=== PATIENT | female | born 2000 | race Two or more races ===

== ENCOUNTER 2024-09-26 03:15 | Emergency (ER) | payer SELFPAY ==
[2024-09-26 03:19] VITALS: PULSE 104; RESP 18; O2SAT 98; BMI 24.4
--- NOTE | 2024-09-26 03:26 | EDNOTE_ITS ---
ED General RME/HPI General Chief complaint: Altered Mental Status Stated complaint: AMS Time Seen by Provider: 09/26/24 03:17 Arrival date/time: 09/26/24 03:15 RME / HPI RME / HPI narrative: See MDM Review of Systems Review of Systems Systems Reviewed: All systems reviewed, normal except as documented ED Exam Narrative Physical exam: Physical Exam GENERAL: NAD, GCS 5, protecting airway HEENT: Moist mucosa. Eyes open, symmetrical, & clear CARDIO: Heart RRR, no obvious murmurs PULM: No noted coughing/dyspnea CTA B/L, no R/W/R GI: Abdomen soft, nondistended, no pain on palpation. BSx4 SKIN/MSK/EXT: No wounds/rashes/edema/amputations, no pain on palpation. Pedal pulses present B/L Course Quality Measures none Orders Category Date Time Status EKG (ED ONLY) *Do not use* NOW Care 09/26/24 04:19 Completed Orthostatic Vitals NOW Care 09/26/24 04:22 Active Straight [In and Out Catheter] X1 Care 09/26/24 03:[address] head/brain wo con Stat Exams 09/26/24 03:39 Stop Req EKG (ED Only) Stat Exams 09/26/24 04:19 Ordered ABG [Arterial Blood Gas] Stat Lab 09/26/24 04:03 Completed Acetaminophen Stat Lab 09/26/24 04:15 Results Alcohol, Blood Medical Stat Lab 09/26/24 04:15 Results Alcohol, Urine Stat Lab 09/26/24 04:20 Completed Ammonia Stat Lab 09/26/24 04:15 Completed CBC [CBC] Stat Lab 09/26/24 04:15 Completed CMP [Comprehensive Metabolic Panel] Stat Lab 09/26/24 04:15 Results Creatine Kinase Stat Lab 09/26/24 04:15 Results Drug Screen,Urine Stat Lab 09/26/24 04:20 Completed HCG Qualitative,Urine Stat Lab 09/26/24 04:48 Ordered Lactic Acid [Lactate (Lactic Acid)] Stat Lab 09/26/24 04:15 Results Troponin I Stat Lab 09/26/24 04:15 Results Urinalysis Stat Lab 09/26/24 04:20 Completed Ringers Lactated 1000 ml [Lactated Ringers] 1,000 ml Med 09/26/24 04:47 Pending IV 999 mls/hr Vital Signs Vital signs: Vital Signs Temperature 98.6 F 09/26/24 03:32 Pulse Rate 75 09/26/24 03:32 Respiratory Rate 17 09/26/24 03:32 Blood Pressure 134/87 H 09/26/24 03:32 Pulse Oximetry (%) 99 09/26/24 03:32 Oxygen Delivery Method Room Air 09/26/24 03:32 Discharge Plan Problem List Clinical Impression: Alcoholic intoxication, Altered mental status Patient/Caregiver Discharge Instructions Additional Instructions: 1.Follow-up with your primary care physician within 1 week of discharge and ask for a referral to neurology in regards to your seizures and syncope, as well as cardiology for further workup of syncope To make sure there is no serious underlying heart condition, ask to help you get more tests for your heart that cannot be done here in the ER.? Such as Holter Monitor (cardiac monitoring at home from a day to even a month), heart stress test (on treadmill or with medication), echocardiogram (imaging of your heart structures), heart catherization (checking for blockages in your heart arteries), and a referral to see a Corporate Fitness Program Coordinator.? Ask for help with EEG (brain monitoring to assess for seizures), referral to see neurologist, and MRI imaging of the brain. 2. Please abstain from consuming high amounts of caffeine as this can induce cardiac arrhythmias 3. Please abstain from alcohol use as this is a trigger for your seizures in addition to all the other complications associated with alcohol use including cancer, liver failure 4. Should any symptoms recur or worsen patient is instructed to return to the ER. Print Language: Setswana MDM Narrative MDM hospital course: 24-year-old female with history of seizures (not on any medication) was brought to the ED due to becoming unresponsive. Per the aunt who was at bedside she states that the patient went out drinking smoking cigarettes went home around midnight and then around 2 in the morning she suddenly lost consciousness and became unresponsive. EMS was called and brought the patient in, per EMS patient has had episodes like this before in the past. EMS states that she had some synchronous twitching of her legs prior to arrival. The aunt states that the patient whenever she drinks she has seizure-like episodes. At the time of my evaluation she opens her eyes with repeated stimulus, and follows instructions she is able to grab my hand on command with equal strength bilaterally. 0350: labs ordered, ABG ordered, urine studies ordered 0418: Patient now with GCS of 15 on further history taken patient states that she had similar episode of passing out 3 to 4 days ago after consuming high amounts of red bull was able to be woken up after a cold shower and multiple sti muli. She states that today before passing out she felt sudden onset palpitations similar to the episode that happened 3 to 4 days ago. 0503: Utox positive for alcohol no other drugs, lactic acid 2.5, IV fluids given, ABG within normal limits As patient's symptoms are resolved and workup came back negative patient is safe to be discharged home. Clinical Information Provided by patient, EMS and family Meds/Rx Considered, not Ordered None Chronic Illness/Social Conditions which may negatively complicate care or outcome(s)-explain: None or not applicable Lab Interpretation Labs: interpreted by me Lab(s) interpretation(s): CBC negative, CMP negative lactic acidosis at 2.5 Imaging Imaging interpretation: none Medication Administration(s) Medication Administration History Lactated Ringer's (Lactated Ringers) 1,000 mls @ 999 mls/hr IV .[id number] ONE Stop: 09/26/24 05:47 See above Diagnosis Differential diagnosis: Alcohol intoxication, near syncope, cardiac arrhythmia Dispositon Disposition: Discharge Home
[2024-09-26 03:32] VITALS: BP 134/87; PULSE 75; RESP 17; TEMP 37; O2SAT 99
--- NOTE | 2024-09-26 03:39 | XR_ITS ---
Examination: CT brain head without contrast. 2-D sagittal coronal reconstructions Date and time of exam:September 26, 2024, 0515 hours INDICATIONS: Seizures today CTDI: vol (mGy):48 DLP: (mGycm):914 Technique: Multiple CT axial sections of the brain have been obtained, 5 mm slice thickness. Contrast has not been administered. 2-D sagittal, coronal reconstructions have been obtained Low dose protocols were performed. One or more of the following dose reduction techniques were used; automated exposure control, adjustment of the mA and/or KV according to patient size, use of iterative reconstruction technique. Findings: No significant ventricular enlargement. Intra-axial or extra-axial hemorrhage density is not seen. No mass effect or midline shift Basal cisterns are not remarkable. Fourth ventricle is midline. Cranial vault intact. Impression: Negative for acute hemorrhage, mass effect or midline shift Consider elective brain MRI follow-up, pain postcontrast, seizure protocol
[2024-09-26 04:10] LABS: Base Excess -4 (-3-3); HCO3 21 mEq/L (20-26); Inspired Oxygen, FIO2 21 %; O2 Saturation 99 % (91-98); PCO2 37 mmHg (32.0-48.0); PO2 100 mmHg (83-108); pH, Arterial 7.36 (7.35-7.45)
[2024-09-26 04:13] LABS: Allen Test Performed/OK; Puncture Site Right Radial
[2024-09-26 04:20] LABS: Lactate (Lactic Acid) 2.5 mMol/L (0.4-2.0)
[2024-09-26 04:35] LABS: Collection Type, Urine Clean Catch
[2024-09-26 04:43] LABS: Acetaminophen < 2.0 mcg/mL (10.0-20.0); Alanine Aminotransferase 14 U/L (10-49); Albumin, Serum 4.3 gm/dL (3.5-5.0); Albumin/Globulin Ratio 1.5 (1.2-2.2); Alcohol, Blood Medical 143.5 mg/dL (0-10.0); Alkaline Phosphatase 71 U/L (46-116); Ammonia < 10 uMol/L (11-32); Anion Gap 11 (7-16); Aspartate Amino Transferase 21 U/L (0-34); BUN/Creatinine Ratio 9 Ratio (12-20); Bilirubin,Total 0.3 mg/dL (0.3-1.2); Blood Urea Nitrogen 7 mg/dL (9-23); Calcium 8.6 mg/dL (8.3-10.6); Calcium (Corrected) 8.6 mg/dL (8.5-10.1); Carbon Dioxide 21.9 mMol/L (20.0-31.0); Chloride 109 mMol/L (98-107); Creatine Kinase 86 U/L (34-171); Creatinine (Component) 0.8 mg/dL (0.6-1.3); Estimated Creatinine Clearance 103.6 mL/min (>60); Globulin 2.8 gm/dL (2.3-3.5); Glucose 95 mg/dL (74-106); Osmolality,Calculated 281 (275-295); Potassium 3.5 mMol/L (3.4-5.1); Sodium 142 mMol/L (136-145); Total Protein 7.1 gm/dL (5.7-8.2); eGFR > 60 See Note
[2024-09-26 04:44] LABS: Basophils # (Auto) 0.0 Thou/mm3 (0.0-0.2); Basophils % (Auto) 0 % (0-2.5); Eosinophils # (Auto) 0.0 Thou/mm3 (0.0-0.5); Eosinophils % (Auto) 0 % (0-10); Hematocrit 38.2 % (36.0-46.0); Hemoglobin 13.1 g/dL (12.0-16.0); Immature Granulocytes Auto 0.02 Thou/mm3 (0.00-0.00); Lymphocytes # (Auto) 2.5 Thou/mm3 (1.0-4.8); Lymphocytes % (Auto) 31 % (10-50); Mean Corpuscular HGB Conc 34.3 g/dl (31.0-37.0); Mean Corpuscular Hemoglobin 31.0 pg (25.0-35.0); Mean Corpuscular Volume 90 fL (80-100); Monocytes # (Auto) 0.3 Thou/mm3 (0.0-0.8); Monocytes % (Auto) 4 % (0-12); Neutrophils # (Auto) 5.2 Thou/mm3 (1.8-7.7); Neutrophils % (Auto) 64 % (37-80); Nucleated Red Blood Cell # 0.00 Thou/mm3 (0.00-0.00); Nucleated Red Blood Cell % 0 /100 WBC (0); Platelet Count 335 Thou/mm3 (140-440); RDW Standard Deviation 41.4 fL (36.4-46.3); Red Blood Count 4.23 Miln/mm3 (4.00-5.20); White Blood Count 8.1 Thou/mm3 (3.6-11.0)
[2024-09-26 04:54] LABS: Amorphous Crystals,Urine Present (Absent); Bilirubin,Urine Negative (Negative); Blood,Urine Negative (Negative); Clarity,Urine Turbid (Clear/Hazy); Color,Urine Colorless (Lt Yel-Yel); Glucose, Urine Negative (Negative); Ketones,Urine Negative (Negative); Leukocyte Esterase,Urine Negative (Negative); Nitrite,Urine Negative (Negative); PH,Urine 6.5 (5.0-7.0); Protein,Urine Trace (Neg - Trace); RBC,Urine 2 /hpf (0-3); Specific Gravity,Urine 1.010 (1.001-1.035); Squamous Epithelial Cell,Urine 2 /hpf (0-5); Urobilinogen,Urine Negative mg/dL (0.0-1.0); WBC,Urine 1 /hpf (0-5)
[2024-09-26 04:58] LABS: Alcohol, Urine Positive (Negative); Amphetamine/Methamp Scrn,U Negative (Negative); Barbiturate Screen,Urine Negative (Negative); Benzodiazepines Screen,Urine Negative (Negative); Benzoylecgonine Screen, Ur Negative (Negative); Fentanyl Screen,Urine Negative (Negative); Opiate Screen,Urine Negative (Negative); THC Screen,Urine Negative (Negative)
[2024-09-26 05:31] LABS: Troponin I < 0.002 ng/mL (0.0-0.045)
[2024-09-26 05:51] VITALS: BP 136/67; PULSE 85; RESP 14; TEMP 37; O2SAT 99
[2024-09-26 07:17] LABS: Reflex Lactate? Y
== END 2024-09-26 05:35 | disposition home or self-care (01) ==
LOC: SERX 06:27
PROVIDERS: Emergency Provider Student in an Organized Health Care Education/Training Program
DX: F10.129 Alcohol abuse with intoxication, unspecified (principal); Y90.9 Presence of alcohol in blood, level not specified; R56.9 Unspecified convulsions
CPT/HCPCS: 36415; 36600; 70450; 80053; 80307; 80320; 80329; 81001; 81025; 82140; 82550; 82803; 83605; 84484; 85025; 93005; 99284; G0480